=== PATIENT | female | born 1960 | race Caucasian/White ===

== ENCOUNTER 2024-07-12 11:56 | Emergency (ER) | payer OTHER ==
[~2024-07-12] VITALS: Ht 160 cm; Wt 68.0 kg
--- NOTE | 2024-07-12 13:16 | NUR ---
Pt. (akbaldev Jennings) had passed in ED26. Family was in consult room when I arrived. Pts. spouse and son are present appropriately grieving. Facilitated a short life review, and then escorted the family to the bedside. Pastoral care is given as is prayer for the Pt. and family. Walked through the initial stages of grief. EOL is given and the family has chosen [facility] for their services. The family is awaiting the mother of the Pt. who is currently en route from [place].
--- NOTE | 2024-07-12 14:25 | NUR ---
Met with Pts. adoptive mother at bedside. Compassion and empathy are expressed as I put my arm around her. Mom veerbalized that she was brought right back to the room. Mom saked this mental health program director to pray. Prayed for Pt. and family. Family verbalized gratitude for the spiritual care visits.
[2024-07-12 15:05] LABS: Calcium, Ionized (POC) 1.02 mmol/L (1.10-1.46); Chloride (POC) 116 mmol/L (98-108); Creatinine (POC) 1.4 mg/dL (0.6-1.0); Glucose (ISTAT POC) 206 mg/dL (70-99); Hemoglobin (POC) 12.9 g/dL (12.0-16.0); Potassium (POC) 4.2 mmol/L (3.5-5.5); Sodium (POC) 143 mmol/L (135-148); Total CO2 (POC) 15 mmol/L (21-32)
[2024-07-12] MEDS ORDERED: EPINEPhrine HCl 0.1 MG/ML 10ML SYR XX ONE (19:04)
[2024-07-12] MEDS ORDERED: Sodium Bicarb 8.4% 1 MEQ/ML 50 ML Vial IV ONE (19:04)
== END 2024-07-12 16:41 ==
LOC: EDBD 11:56 → EDSEX 11:56 → ER 11:56
PROVIDERS: Emergency Medicine
DX: I46.9 Cardiac arrest, cause unspecified (principal); E11.9 Type 2 diabetes mellitus without complications
CPT/HCPCS: 80047; 82947; 85014; 92950; 96374; 96375; 99285-25